=== PATIENT | male | born 1970 | race Two or more races ===

== ENCOUNTER 2024-12-04 06:31 | Emergency (ER) | payer MEDICAID, SELFPAY ==
[2024-12-04 06:43] VITALS: BP 173/95; PULSE 71; RESP 17; TEMP 36.9; O2SAT 97
--- NOTE | 2024-12-04 06:50 | XR_ITS ---
Examination: CT abdomen and pelvis without contrast. Coronal 3-D reconstructions. Sagittal 2-D reconstructions. Date and time of exam:December 04, 2024 0748 hrs. Indications: Onset left lower abdominal pain beginning today CTDI: vol (mGy): 7.91 DLP: (mGycm): 443 Technique: Axial images of the abdomen have been obtained, 3 mm slice thickness Intravenous contrast material has not been administered. Low dose protocols were performed. One or more of the following dose reduction techniques were used; automated exposure control, adjustment of the mA and/or KV according to patient size, use of iterative reconstruction technique. Findings: No focal liver lesions or biliary tract dilatation Spleen is not enlarged No gallstones No pancreatic or adrenal mass Mild left hydronephrosis secondary to 3 mm mid left ureteral calculus Normal appendix No bowel obstruction No diverticulitis No bladder mass or bladder calculi Impression: Mild left hydronephrosis secondary to 3 mm mid left ureteral calculus
--- NOTE | 2024-12-04 06:51 | PD.EDRME ---
Rapid Medical Screening Exam RME Arrival date/time: 12/04/24 06:31 54-year-old male presents to the emergency department complains of left lower abdominal pain and left flank pain ongoing since last night Chief Complaint: Abdominal Pain Vital signs: Vital Signs Temperature 98.5 F 12/04/24 06:43 Pulse Rate 71 12/04/24 06:43 Respiratory Rate 17 12/04/24 06:43 Blood Pressure 173/95 H 12/04/24 06:43 Pulse Oximetry (%) 97 12/04/24 06:43 Oxygen Delivery Method Room Air 12/04/24 06:43
[2024-12-04] MEDS: KETOROLAC INJ 30 MG/ML VIAL IM ×2 (07:08→08:54)
[2024-12-04] MEDS: HYDROcodone/APAP 5/325 TABLET 1 TAB PO (07:09)
[2024-12-04] MEDS: ONDANSETRON ODT 4 MG TABRAP PO (07:10)
[2024-12-04 07:46] LABS: Collection Type, Urine Clean Catch; Squamous Epithelial Cell,Urine 0 /hpf (0-5); WBC,Urine 0 /hpf (0-5)
[2024-12-04 07:50] LABS: Basophils # (Auto) 0.1 Thou/mm3 (0.0-0.2); Basophils % (Auto) 1 % (0-2.5); Eosinophils % (Auto) 0 % (0-10); Hemoglobin 14.9 g/dL (13.5-16.0); Immature Granulocytes % (Auto) 0 % (0-0); Immature Granulocytes Auto 0.03 Thou/mm3 (0.00-0.00); Lymphocytes # (Auto) 0.5 Thou/mm3 (1.0-4.8); Lymphocytes % (Auto) 5 % (10-50); Mean Corpuscular HGB Conc 35.5 g/dl (31.0-37.0); Mean Corpuscular Hemoglobin 31.5 pg (25.0-35.0); Mean Corpuscular Volume 89 fL (80-100); Monocytes # (Auto) 0.5 Thou/mm3 (0.0-0.8); Monocytes % (Auto) 5 % (0-12); Neutrophils # (Auto) 8.5 Thou/mm3 (1.8-7.7); Neutrophils % (Auto) 88 % (37-80); Nucleated Red Blood Cell % 0 /100 WBC (0); Platelet Count 158 Thou/mm3 (140-440); Red Blood Count 4.73 Miln/mm3 (4.50-5.90); White Blood Count 9.6 Thou/mm3 (3.8-10.6)
[2024-12-04 08:03] LABS: Amorphous Crystals,Urine Present (Absent); Bilirubin,Urine Negative (Negative); Blood,Urine 2+ (Negative); Color,Urine Yellow (Lt Yel-Yel); Culture Indicated,Urine Not Indicated; Glucose, Urine Negative (Negative); Ketones,Urine Negative (Negative); Leukocyte Esterase,Urine Negative (Negative); Nitrite,Urine Negative (Negative); PH,Urine 5.5 (5.0-7.0); Protein,Urine 1+ (Neg - Trace); RBC,Urine 16 /hpf (0-3); Urobilinogen,Urine Negative mg/dL (0.0-1.0)
[2024-12-04 08:13] LABS: Alanine Aminotransferase 17 U/L (10-49); Albumin, Serum 4.7 gm/dL (3.5-5.0); Albumin/Globulin Ratio 1.7 (1.2-2.2); Alkaline Phosphatase 85 U/L (46-116); Anion Gap 5 (7-16); Aspartate Amino Transferase 24 U/L (0-34); BUN/Creatinine Ratio 20 Ratio (12-20); Bilirubin,Total 0.6 mg/dL (0.3-1.2); Blood Urea Nitrogen 24 mg/dL (9-23); Calcium 9.2 mg/dL (8.3-10.6); Calcium (Corrected) 9.2 mg/dL (8.5-10.1); Carbon Dioxide 26.9 mMol/L (20.0-31.0); Chloride 105 mMol/L (98-107); Creatinine (Component) 1.2 mg/dL (0.6-1.3); Globulin 2.8 gm/dL (2.3-3.5); Glucose 135 mg/dL (74-106); Lipase 43 U/L (12-53); Osmolality,Calculated 279 (275-295); Potassium 4.5 mMol/L (3.4-5.1); Sodium 137 mMol/L (136-145); Total Protein 7.5 gm/dL (5.7-8.2); eGFR > 60 See Note
[2024-12-04 08:16] LABS: Clarity,Urine Turbid (Clear/Hazy)
--- NOTE | 2024-12-04 08:35 | PD.EDABDPN ---
ED Abdominal Pain RME/HPI General Chief Complaint: Abdominal Pain Stated complaint: ABD PAIN Time seen by provider: 12/04/24 08:18 Arrival date/time: 12/04/24 06:31 54-year-old male presents to the emergency department complains of left lower abdominal pain and left flank pain ongoing since last night Limitations: no limitations RME / HPI RME / HPI narrative: 12/04/24 06:31 54-year-old male presents to the emergency department complains of left lower abdominal pain and left flank pain ongoing since last night Related Data Previous Rx's ?Medication ?Instructions ?Recorded hydrocodone 5 mg-acetaminophen 325 1 tab PO BID PRN pain #10 tabs 12/04/24 mg tablet ibuprofen 800 mg tablet 800 mg PO TID PRN pain #30 tabs 12/04/24 tamsulosin 0.4 mg capsule (Flomax) 0.4 mg PO QDAY 14 days #14 caps 12/04/24 Allergies Allergy/AdvReac Type Severity Reaction Status Date / Time Iodinated Contrast Media Allergy Intermediate Anxiety Verified 12/04/24 06:32 Review of Systems Review of Systems Systems Reviewed: All systems reviewed, normal except as documented Constitutional Constitutional: Reports system reviewed and no additional complaints, except as documented, Denies fever(s) and Denies headache(s) Eyes Eyes: Reports system reviewed and no additional complaints, except as documented and Denies blurry vision ENT Ears, Nose, Mouth, and Throat: Reports system reviewed and no additional complaints, except as documented, Denies headache(s), Denies nasal congestion and Denies nasal discharge Cardiovascular Cardiovascular: Reports system reviewed and no additional complaints, except as documented, Denies chest pain and Denies dyspnea Respiratory Respiratory: Reports system reviewed and no additional complaints, except as documented, Denies chest congestion, Denies cough and Denies dyspnea Gastrointestinal Gastrointestinal: Reports system reviewed and no additional complaints, except as documented and Denies abdominal pain Genitourinary Genitourinary: Reports system reviewed and no additional complaints, except as documented and Reports other (Left flank pain) Integumentary/Breasts Skin/Breast: Reports system reviewed and no additional complaints, except as documented and Denies rash Neurologic Neurologic: Reports system reviewed and no additional complaints, except as documented, Reports as per HPI and Denies headache(s) Past Medical History Past Medical History NEUROLOGIC: Negative Neurological Disorders CARDIAC: Negative Cardiac Disorders Social History SMOKING STATUS: Never smoker ED Exam General Limitations: Present no limitations General appearance: Present alert and in no apparent distress Head Head exam: Present atraumatic, normocephalic and normal inspection Eye Eye exam: Present normal appearance, PERRL and EOMI; Absent conjunctival injection ENT ENT exam: Present normal exam, normal oropharynx and mucous membranes moist Neck Neck exam: Present normal inspection, full ROM and trachea midline Chest Chest inspection: Present normal inspection and symmetric chest wall rise Respiratory Respiratory exam: Present normal lung sounds bilaterally; Absent respiratory distress Cardiovascular Cardiovascular exam: Present regular rate, normal rhythm and normal heart sounds Abdominal Exam Abdominal exam: Present soft and normal bowel sounds; Absent distention, tenderness, guarding, rebound, rigidity, Hung's sign or tenderness at McBurney's Point Abdominal tenderness: Absent RUQ or RLQ Extremities Exam Extremities exam: Present normal inspection and full ROM Back Exam Back exam: Present normal inspection and full ROM Neurological Exam Neurological exam: Present alert, oriented X3 and CN II-XII intact Psychiatric Psychiatric exam: Present normal affect and normal mood Skin Skin exam: Present warm, dry, intact and normal color Course Quality Measures none Orders Category Date Time Status CT abdomen pelvis wo con Stat Exams 12/04/24 06:50 Completed CBC Stat Lab 12/04/24 07:37 Completed Comprehensive Metabolic Panel Stat Lab 12/04/24 07:37 Completed Lipase Stat Lab 12/04/24 07:37 Completed UA, C/S IF [Urinalysis, C/S if Indicated] Stat Lab 12/04/24 07:07 Completed HYDROcodone*/APAP 5/325 [[place] 5/325] Med 12/04/24 06:50 Discontinued 1 tab PO X1 ONE Ketorolac Inj [Toradol Inj] Med 12/04/24 06:50 Discontinued 30 mg IM X1 ONE Ketorolac Inj [Toradol Inj] Med 12/04/24 08:40 Discontinued 30 mg IM X1 ONE Ondansetron Odt [Zofran Odt] Med 12/04/24 06:50 Discontinued 4 mg PO X1 ONE Vital Signs Vital signs: Vital Signs Temperature 98.5 F 12/04/24 06:43 Pulse Rate 71 12/04/24 06:43 Respiratory Rate 17 12/04/24 06:43 Blood Pressure 173/95 H 12/04/24 06:43 Pulse Oximetry (%) 97 12/04/24 06:43 Oxygen Delivery Method Room Air 12/04/24 06:43 O2 saturation 97% room air within normal limits Abdominal Pain MDM MDM Narrative MDM Narrative:: 54-year-old male presents to the emergency department complains of left lower abdominal pain and left flank pain ongoing since last night On exam patient well-appearing patient does not appear ill or toxic patient is not appear in acute distress On exam patient does appear to be in pain I suspect patient is kidney stone Lab work as well as CT scan obtained Urinalysis note shows no evidence of infection Lab work unremarkable CT scan consistent with millimeter stone I do suspect the patient will pass the stone I did explain to the patient there are a small portion of people that will not pass a 3 mm stone should he get worse instructed to return immediately for further evaluation patient states understanding Patient was medicated here states pain has improved Patient discharged home in no distress to follow-up with primary care doctor in the next 24 to 48 hours and for any worsening symptoms to return to the ER immediately Patient data External records reviewed:: [facility] previous records Clinical information provided by:: patient Social determinants that could affect healthcare access:: none Patient has the following chronic illnesses:: None How is presenting disease/condition affected by chronic disease/condition?: no chronic disease Evaluation data The following diagnostics were reviewed and interpreted by me:: lab results and radiology exam(s) Lab and/or radiology exams considered but not ordered:: Labs radiology obtain Interpretation Summary: Reviewed by me Medications / Prescriptions Medications or Prescriptions considered but not ordered:: Given Medication administrations:: Medication Administration History Discontinued Medications Hydrocodone Bitart/Acetaminophen (Hydrocodone/Apap 5/325 Tablet) 1 tab PO X1 ONE Stop: 12/04/24 06:51 Last Admin: 12/04/24 07:09 Dose: 1 tab Documented By: NORA Ketorolac Tromethamine (Ketorolac Inj 30 Mg/Ml Vial) 30 mg IM X1 ONE Stop: 12/04/24 06:51 Last Admin: 12/04/24 07:08 Dose: 30 mg Documented By: NORA Ketorolac Tromethamine (Ketorolac Inj 30 Mg/Ml Vial) 30 mg IM X1 ONE Stop: 12/04/24 08:41 Last Admin: 12/04/24 08:54 Dose: 30 mg Documented By: NORA Ondansetron HCl (Ondansetron Odt 4 Mg Tabrap) 4 mg PO X1 ONE; Protocol Stop: 12/04/24 06:51 Last Admin: 12/04/24 07:10 Dose: 4 mg Documented By: DB Given Consultations Consultation(s) initiated? (list below): No Diagnosis Differential diagnosis abdominal pain: abdominal pain, calculus of kidney and small bowel obstruction Most likely diagnosis given after review of the tests above:: Renal calculi Admission Indicated Admission indicated?: not indicated Admission Request Was there a request for admission?: No Disposition Plan Disposition Plan: Discharge Discharge Attestation Discharge Attestation: The patient and all family members were given an opportunity to ask questions and understood the discharge instructions. Discharge instructions specifically effects, indications for sooner follow up or return to the emergency department, and the expected course of current diagnosis. Patient condition: Stable Discharge Plan Plan Patient Disposition: HOME (Self Care) Disposition Comment: Stable Prescriptions/Referrals Prescriptions/Med Rec: New ibuprofen 800 mg tablet 800 mg PO TID PRN (Reason: pain) Qty: 30 0RF hydrocodone-acetaminophen 5-325 mg tablet 1 tab PO BID MDD 10 PRN (Reason: pain) Qty: 10 0RF tamsulosin [Flomax] 0.4 mg capsule 0.4 mg PO QDAY 14 Days Qty: 14 0RF Referrals: No Primary/Family,Physician [Primary Care Provider] - In 1 week Problem List Clinical Impression: Renal colic on left side Patient/Caregiver Discharge Instructions Education Materials: ED Kidney Stone w/ Colic Additional Instructions: Please follow up with your primary care doctor in the next 24-48hrs for any worsening symptoms return here immediately Print Language: [place]i Stand Alone Forms: Mary Kate Award Info., Patient Portal Info Letter PA/ANIRUDH Supervising Physician MAYTE/ANIRUDH Supervising Physician: Dr solano
== END 2024-12-04 08:57 | disposition home or self-care (01) ==
PROVIDERS: Nurse Practitioner Primary Care; Emergency Provider Emergency Medicine
DX: N20.1 Calculus of ureter (principal); Z91.041 Radiographic dye allergy status
CPT/HCPCS: 36415; 74176; 80053; 81001; 83690; 85025; 96372; 99284; J1885; Q0162; A9270

== ENCOUNTER → 2025-01-19 | Outpatient (CLI) | payer MEDICAID, SELFPAY ==
--- NOTE | 2025-01-19 16:00 | XR_ITS ---
Examination: Retroperitoneal ultrasound, complete Technique: Multiple high resolution grayscale images of the retroperitoneum obtained, including kidneys and bladder. Exam date and time:January 19, 2025 1400 hours INDICATIONS: Left flank pain beginning 2 months ago FINDINGS: Right kidney 11.0 cm cortex 3.6 cm Left kidney 11.6 cm cortex 2.9 cm 5 mm mid pole left renal calculus, no hydronephrosis Mild renal parenchymal scar formation No bladder mass or bladder calculi Bladder prevoid volume 15 of 51 cc postvoid volume 0 cc No prostatomegaly, volume 21 cc no prostate nodules IMPRESSION: 5 mm midpole nonobstructing left renal calculus
== END | disposition home or self-care (01) ==
PROVIDERS: PCP Nurse Practitioner Family; Referring Provider Nurse Practitioner Family; Visit Provider Nurse Practitioner Family
DX: N20.0 Calculus of kidney (principal)
CPT/HCPCS: 76770